=== PATIENT | female | born 1990 ===

== ENCOUNTER → 2022-02-23 | Outpatient (CLI) | payer OTHER ==
[~2022-02-23] MED LIST: BIRTH CONTROL; CODACE30 PO
[2022-02-25 01:10] LABS: CHLAMYDIA TRACHOMATIS, NAA Negative (Negative)
== END | disposition home or self-care (01) ==
LOC: LAB 13:00 → LAB SHORT 13:00
PROVIDERS: Registered Nurse Community Health
DX: Z34.81 Encounter for supervision of other normal pregnancy, first trimester (principal)
CPT/HCPCS: 87491; 87591

== ENCOUNTER → 2022-08-23 | Outpatient (CLI) | payer OTHER | END | disposition home or self-care (01) | LOC: LAB 16:45 → LAB SHORT 16:45 | DX: Z34.83 Encounter for supervision of other normal pregnancy, third trimester (principal) | CPT/HCPCS: 87081; 87150 ==

== ENCOUNTER 2022-08-30 12:59 | Inpatient (IN) | payer OTHER ==
[2022-08-30] VITALS (18 sets, daily range): BP systolic 106–164; BP diastolic 52–86
[~2022-08-30] VITALS: Ht 162.6 cm; Wt 107.3 kg
[2022-08-30 14:12] LABS: BASOPHILS ABSOLUTE AUTO 0.01 K/mm3 (0.00-0.23); BASOPHILS PERCENT AUTO 0 % (0-2); EOSINOPHILS ABSOLUTE AUTO 0.06 K/mm3 (0.00-0.68); EOSINOPHILS PERCENT AUTO 1 % (0-6); Hematocrit 36.6 % (33.0-51.0); Hemoglobin 12.3 g/dL (11.5-16.0); IMMATURE GRAN ABSOLUTE AUTO 0.06 K/mm3 (0.00-0.10); IMMATURE GRAN PERCENT AUTO 1 % (0-1); LYMPHOCYTES ABSOLUTE AUTO 1.92 K/mm3 (0.84-5.20); LYMPHOCYTES PERCENT AUTO 17 % (21-46); MONOCYTES ABSOLUTE AUTO 0.79 K/mm3 (0.16-1.47); MONOCYTES PERCENT AUTO 7 % (4-13); Mean Corpuscular HGB 28.9 pg (26.0-34.0); Mean Corpuscular HGB Conc 33.6 g/dL (31.5-36.5); Mean Corpuscular Volume 86 fL (80-100); Mean Platelet Volume 9.7 fL (9.1-12.4); NEUTROPHILS ABSOLUTE AUTO 8.46 K/mm3 (1.96-9.15); NEUTROPHILS PERCENT AUTO 75 % (41-73); Platelet Count 211 K/mm3 (150-400); RDW Coefficient Variation 13.5 % (11.7-14.2); RDW Standard Deviation 42.2 fL (35.1-46.3); Red Blood Cell Count 4.25 M/mm3 (3.80-5.20)
[2022-08-30] MEDS ORDERED: PRENATAL TABLE1 EAC2 PO (14:13)
[2022-08-31] VITALS (17 sets, daily range): BP systolic 115–136; BP diastolic 56–73
[2022-08-31 12:59] LABS: BASOPHILS ABSOLUTE AUTO 0.03 K/mm3 (0.00-0.23); BASOPHILS PERCENT AUTO 0 % (0-2); EOSINOPHILS ABSOLUTE AUTO 0.01 K/mm3 (0.00-0.68); EOSINOPHILS PERCENT AUTO 0 % (0-6); Hematocrit 35.3 % (33.0-51.0); Hemoglobin 11.9 g/dL (11.5-16.0); IMMATURE GRAN ABSOLUTE AUTO 0.09 K/mm3 (0.00-0.10); IMMATURE GRAN PERCENT AUTO 1 % (0-1); LYMPHOCYTES ABSOLUTE AUTO 2.53 K/mm3 (0.84-5.20); LYMPHOCYTES PERCENT AUTO 14 % (21-46); MONOCYTES ABSOLUTE AUTO 1.15 K/mm3 (0.16-1.47); MONOCYTES PERCENT AUTO 6 % (4-13); Mean Corpuscular HGB Conc 33.7 g/dL (31.5-36.5); Mean Corpuscular Volume 86 fL (80-100); NEUTROPHILS ABSOLUTE AUTO 14.03 K/mm3 (1.96-9.15); NEUTROPHILS PERCENT AUTO 79 % (41-73); Platelet Count 208 K/mm3 (150-400); RDW Coefficient Variation 13.8 % (11.7-14.2); RDW Standard Deviation 43.2 fL (35.1-46.3); White Blood Cell Count 17.84 K/mm3 (4.00-11.30)
--- NOTE | 2022-08-31 19:04 | NUR ---
REPT TO [facility]
[2022-09-01 00:32] VITALS: BP 124/57
[2022-09-01 02:59] VITALS: BP 125/60
[2022-09-01] MEDS ORDERED: Colace100 MG PO (07:28)
[2022-09-01] MEDS ORDERED: IBUP800 PO (07:28)
[2022-09-01 07:54] VITALS: BP 126/60
--- NOTE | 2022-09-01 08:25 | NUR ---
dc instructions given to pt and significant other, questions answered. will follow up with christiana smart within 2 -6 weeks. mmr given. ppfu at [facility] scheduled for [phone]
--- NOTE | 2022-09-04 11:51 | NUR ---
UPDATED WEIGHT, MEASUREMENTS FOR L&D SUMMARY PER EMR/RN
== END 2022-09-01 08:30 | disposition home or self-care (01) | DRG 806 ==
LOC: OBS 12:59 → BC 13:00 → OBS 13:29 → BC 13:30
PROVIDERS: ADMIT Family Medicine
PROC: 10E0XZZ Delivery of Products of Conception, External Approach (ICD-10-PCS; principal; 2022-08-30)
DX: O42.02 Full-term premature rupture of membranes, onset of labor within 24 hours of rupture (principal); O99.324 Drug use complicating childbirth; Z37.0 Single live birth; F12.10 Cannabis abuse, uncomplicated; Z3A.37 37 weeks gestation of pregnancy; Z98.890 Other specified postprocedural states; Z87.891 Personal history of nicotine dependence; Z79.899 Other long term (current) drug therapy; O63.1 Prolonged second stage (of labor); O32.6XX0 Maternal care for compound presentation, not applicable or unspecified
CPT/HCPCS: 36415; 51702; 85025; 86850; 86900; 86901; 90471; 90707; A9270; J2590; J3010; J7120

== ENCOUNTER → 2023-10-04 | Outpatient (CLI) | payer OTHER ==
[~2023-10-04] MED LIST changes: +Colace100 MG PO; +IBUP800 PO; +PRENATAL TABLE1 EAC2 PO
[2023-10-06 11:01] LABS: APTIMA MEDIA TYPE Urine; C. TRACHOMATIS BY TMA Negative (Negative); N. GONORRHOEAE BY TMA Negative (Negative); SPECIMEN SOURCE Urine
== END | disposition home or self-care (01) ==
LOC: LAB 13:43 → LAB SHORT 13:43
PROVIDERS: Family Medicine
DX: Z34.91 Encounter for supervision of normal pregnancy, unspecified, first trimester (principal)
CPT/HCPCS: 87491; 87591

== ENCOUNTER → 2024-02-07 | Outpatient (CLI) | payer OTHER ==
[2024-02-07 14:50] LABS: BASOPHILS ABSOLUTE AUTO 0.01 K/mm3 (0.00-0.23); BASOPHILS PERCENT AUTO 0 % (0-2); EOSINOPHILS ABSOLUTE AUTO 0.06 K/mm3 (0.00-0.68); EOSINOPHILS PERCENT AUTO 1 % (0-6); Hematocrit 35.9 % (33.0-51.0); Hemoglobin 12.3 g/dL (11.5-16.0); IMMATURE GRAN ABSOLUTE AUTO 0.05 K/mm3 (0.00-0.10); IMMATURE GRAN PERCENT AUTO 1 % (0-1); LYMPHOCYTES ABSOLUTE AUTO 1.38 K/mm3 (0.84-5.20); LYMPHOCYTES PERCENT AUTO 14 % (21-46); MONOCYTES ABSOLUTE AUTO 0.73 K/mm3 (0.16-1.47); MONOCYTES PERCENT AUTO 8 % (4-13); Mean Corpuscular HGB 30.5 pg (26.0-34.0); Mean Corpuscular HGB Conc 34.3 g/dL (31.5-36.5); Mean Corpuscular Volume 89 fL (80-100); Mean Platelet Volume 9.9 fL (9.1-12.4); NEUTROPHILS ABSOLUTE AUTO 7.41 K/mm3 (1.96-9.15); NEUTROPHILS PERCENT AUTO 77 % (41-73); Platelet Count 209 K/mm3 (150-400); RDW Coefficient Variation 13.2 % (11.7-14.2); RDW Standard Deviation 42.9 fL (35.1-46.3); Red Blood Cell Count 4.03 M/mm3 (3.80-5.20); White Blood Cell Count 9.64 K/mm3 (4.00-11.30)
== END | disposition home or self-care (01) ==
LOC: LAB SHORT 12:56 → LAB 12:56
PROVIDERS: Family Medicine
DX: Z34.93 Encounter for supervision of normal pregnancy, unspecified, third trimester (principal)
CPT/HCPCS: 82950; 85025

== ENCOUNTER → 2024-04-03 | Outpatient (CLI) | payer OTHER | LOC: LAB 13:10 → LAB SHORT 13:10 | DX: Z34.93 Encounter for supervision of normal pregnancy, unspecified, third trimester (principal) | CPT/HCPCS: 87081; 87150 ==

== ENCOUNTER 2024-04-27 19:01 | Inpatient (IN) | payer OTHER ==
[~2024-04-27] VITALS: Ht 162.6 cm; Wt 101.0 kg
[2024-04-27] MEDS ORDERED: Misoprostol 25 MCG Tab VAG PRN (19:10)
[2024-04-27] MEDS ORDERED: Lactated Ringer's 1,000 ML IV PRN (19:10)
[2024-04-27] MEDS ORDERED: Misoprostol 200 MCG Tab PR PRN (19:10)
[2024-04-27] MEDS ORDERED: Methylergonovine Maleate 0.2MG / ML 1ML Amp IM PRN (19:10)
[2024-04-27] MEDS ORDERED: Lactated Ringer's 1,000 ML IV SCH (19:10)
[2024-04-27] MEDS ORDERED: Misoprostol 200 MCG Tab BC PRN (19:10)
[2024-04-27] MEDS ORDERED: Tranexamic Acid 100 ML IV SCH (19:10)
[2024-04-27] MEDS ORDERED: OXYTOCIN/RINGER'S LACTATE 500 ML IV PRN (19:10)
[2024-04-27] MEDS ORDERED: Carboprost Tromethamine 250 MCG/ML 1ML Amp IM PRN (19:10)
[2024-04-27] MEDS ORDERED: Acetaminophen 500 MG Tab PO PRN (19:10)
[2024-04-27] MEDS ORDERED: Oxytocin 10 Unit / ML Vial IM PRN (19:10)
[2024-04-27] MEDS ORDERED: Ondansetron HCl 2 MG / ML 2ML Vial IV PRN (19:10)
[2024-04-27] MEDS ORDERED: Calcium Carbonate 500 MG Tab Chew PO PRN (19:15)
[2024-04-27 19:23] VITALS: BP 110/55
[2024-04-27 19:31] LABS: BASOPHILS ABSOLUTE AUTO 0.02 K/mm3 (0.00-0.23); BASOPHILS PERCENT AUTO 0 % (0-2); EOSINOPHILS PERCENT AUTO 1 % (0-6); Hemoglobin 12.4 g/dL (11.5-16.0); IMMATURE GRAN ABSOLUTE AUTO 0.12 K/mm3 (0.00-0.10); IMMATURE GRAN PERCENT AUTO 1 % (0-1); LYMPHOCYTES ABSOLUTE AUTO 2.29 K/mm3 (0.84-5.20); LYMPHOCYTES PERCENT AUTO 16 % (21-46); MONOCYTES ABSOLUTE AUTO 1.13 K/mm3 (0.16-1.47); MONOCYTES PERCENT AUTO 8 % (4-13); Mean Corpuscular HGB 28.7 pg (26.0-34.0); Mean Corpuscular HGB Conc 33.5 g/dL (31.5-36.5); Mean Corpuscular Volume 86 fL (80-100); Mean Platelet Volume 9.9 fL (9.1-12.4); NEUTROPHILS ABSOLUTE AUTO 10.27 K/mm3 (1.96-9.15); NEUTROPHILS PERCENT AUTO 74 % (41-73); Platelet Count 213 K/mm3 (150-400); RDW Coefficient Variation 13.6 % (11.7-14.2); RDW Standard Deviation 42.5 fL (35.1-46.3); Red Blood Cell Count 4.32 M/mm3 (3.80-5.20); White Blood Cell Count 13.93 K/mm3 (4.00-11.30)
[2024-04-27] MEDS ORDERED: Lactated Ringer's 1,000 ML IV ONE (21:40)
[2024-04-27 21:57] LABS: Source, Urine Clean Catch
[2024-04-27 22:02] LABS: Bilirubin, Urine Neg (Neg); Blood, Urine 1+ (Neg); Glucose Qualitative, Urine Neg (Neg); Ketones, Urine Neg (Neg); Leukocyte Esterase, Urine 3+ (Neg); Nitrite, Urine Neg (Neg); Protein, Urine Neg (Neg); Urobilinogen, Urine NORM (Normal)
[2024-04-27 22:04] LABS: Appearance, Urine Hazy (Clear); Color, Urine Yellow (P-Yellow)
[2024-04-27 22:09] LABS: Amorphous Light (0-Heavy); Bacteria Many /hpf; Red Blood Cells, Urine 0-2 /hpf (0-2); Squamous Epithelial Cells Many /hpf (Few)
[2024-04-27 22:57] LABS: Bacterial Vaginosis PCR Negative (NEGATIVE); Candida Group, PCR NOT DETECTED (NOT DETECT)
[2024-04-27 23:06] LABS: Candida glabrata-krusei, PCR DETECTED (NOT DETECT)
[2024-04-28] VITALS (34 sets, daily range): BP systolic 88–131; BP diastolic 45–76
[2024-04-28] MEDS ORDERED: Fluconazole 100 MG Tab PO ONE ×2 (00:25→00:50)
[2024-04-28] MEDS ORDERED: OXYTOCIN/RINGER'S LACTATE 500 ML IV SCH ×2 (01:55→10:45)
[2024-04-28] MEDS ORDERED: FentaNYL Citrate 50 MCG/ML 2 ML Injection IV PRN (07:15)
[2024-04-28] MEDS ORDERED: FentaNYL 2mcg/ml-Bup 0.1% Epd 250 ML EPI PRN (07:15)
[2024-04-28] MEDS ORDERED: Lactated Ringer's 1,000 ML IV SCH ×3 (07:15→16:25)
[2024-04-28] MEDS ORDERED: ePHEDrine Sulfate 50 MG/ML 1ML Injection XX PRN (07:15)
[2024-04-28] MEDS ORDERED: Docusate Sodium 100 MG Cap PO PRN (16:20)
[2024-04-28] MEDS ORDERED: FLU VACC TS2024-25(6MOS UP)/PF 45 MCG/0.5 ML SYRINGE IM SCH (16:20)
[2024-04-28] MEDS ORDERED: Benzocaine Topical Anesthetic Spray 60GM TOP PRN (16:20)
[2024-04-28] MEDS ORDERED: Naproxen 500 MG Tab PO PRN (16:25)
[2024-04-28] MEDS ORDERED: Witch Hazel/Glycerin PADS TOP PRN (16:25)
[2024-04-28] MEDS ORDERED: OxyCODONE 5 mg/Acetamin 325 mg TABLET PO PRN (16:25)
[2024-04-28] MEDS ORDERED: Acetaminophen 325 MG TABLET PO PRN (16:25)
[2024-04-28] MEDS ORDERED: Lanolin Cream TOP PRN (16:25)
[2024-04-28] MEDS ORDERED: Ketorolac Tromethamine 30mg Vial IV SCH (18:00)
[2024-04-29 04:20] VITALS: BP 112/55
[2024-04-29 06:36] LABS: BASOPHILS ABSOLUTE AUTO 0.02 K/mm3 (0.00-0.23); BASOPHILS PERCENT AUTO 0 % (0-2); EOSINOPHILS ABSOLUTE AUTO 0.12 K/mm3 (0.00-0.68); EOSINOPHILS PERCENT AUTO 1 % (0-6); Hemoglobin 10.5 g/dL (11.5-16.0); IMMATURE GRAN ABSOLUTE AUTO 0.15 K/mm3 (0.00-0.10); IMMATURE GRAN PERCENT AUTO 1 % (0-1); LYMPHOCYTES PERCENT AUTO 14 % (21-46); MONOCYTES ABSOLUTE AUTO 1.45 K/mm3 (0.16-1.47); MONOCYTES PERCENT AUTO 9 % (4-13); Mean Corpuscular HGB 28.4 pg (26.0-34.0); Mean Corpuscular HGB Conc 32.8 g/dL (31.5-36.5); Mean Corpuscular Volume 87 fL (80-100); Mean Platelet Volume 9.8 fL (9.1-12.4); NEUTROPHILS ABSOLUTE AUTO 11.95 K/mm3 (1.96-9.15); NEUTROPHILS PERCENT AUTO 75 % (41-73); Platelet Count 177 K/mm3 (150-400); RDW Coefficient Variation 13.8 % (11.7-14.2); RDW Standard Deviation 43.1 fL (35.1-46.3); White Blood Cell Count 15.99 K/mm3 (4.00-11.30)
[2024-04-29 08:48] VITALS: BP 120/56
[2024-04-29] MEDS ORDERED: Prenatal Vit/FE Fumarate/FA 1 Tab PO SCH (09:00)
[2024-04-29 12:22] VITALS: BP 112/60
[2024-04-29 17:26] VITALS: BP 122/80
== END 2024-04-29 17:40 | disposition home or self-care (01) | DRG 807 ==
LOC: OBS 19:01 → BC 19:04 → OBS 19:10 → BC 19:13
PROVIDERS: ADMIT Family Medicine
PROC: 10E0XZZ Delivery of Products of Conception, External Approach (ICD-10-PCS; principal; 2024-04-28)
DX: O36.63X0 Maternal care for excessive fetal growth, third trimester, not applicable or unspecified (principal); Z37.0 Single live birth; Z3A.39 39 weeks gestation of pregnancy; O70.0 First degree perineal laceration during delivery
CPT/HCPCS: 36415; 51702; 81001; 81003; 85025; 86850; 86900; 86901; 86923; 87086; 87481; 87661; 87801; A9270; J1885; J2590; J7120